=== PATIENT | female | born 2000 | race African-American/Black ===

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

== ENCOUNTER 2018-07-19 21:50 | Emergency (ER) | payer SELFPAY ==
[~2018-07-19] VITALS: Ht 162.6 cm; Wt 70.3 kg
[~2018-07-19 21:50] MED LIST: SULF1TAB35 PO
[2018-07-19] MEDS ORDERED: SERT25TA PO (22:00)
[2018-07-19] MEDS ORDERED: KETOROLAC 30 MG/ML VIAL IVP ONE (22:00)
[2018-07-19 22:09] LABS: BASOPHILS % (AUTO) 0 % (0-10); EOSINOPHILS # (AUTO) 0.1 10^3/uL (0.0-0.3); EOSINOPHILS % (AUTO) 1 % (0-10); HEMATOCRIT 40 % (35-52); HEMOGLOBIN 13.7 G/DL (11.5-16.0); LYMPHOCYTES # (AUTO) 4.3 X 10^3 (1.0-4.0); LYMPHOCYTES % (AUTO) 48 % (12-44); MEAN CORPUSCULAR HEMOGLOBIN 32 PG (25-34); MEAN CORPUSCULAR HGB CONC 34 G/DL (32-36); MEAN CORPUSCULAR VOLUME 92 FL (80-99); MEAN PLATELET VOLUME 9.4 FL (7.4-10.4); MONOCYTES % (AUTO) 12 % (0-12); NEUTROPHILS # (AUTO) 3.4 X 10^3 (1.8-7.8); NEUTROPHILS % (AUTO) 39 % (42-75); PLATELET COUNT 254 10^3/uL (130-400); RED CELL DISTRIBUTION WIDTH 12.5 % (10.0-14.5); WHITE BLOOD COUNT 8.9 10^3/uL (4.3-11.0)
[2018-07-19 22:30] LABS: ALANINE AMINOTRANSFERASE 17 U/L (0-55); ALBUMIN 4.8 GM/DL (3.2-4.5); ALKALINE PHOSPHATASE 71 U/L (40-136); BILIRUBIN,TOTAL 0.3 MG/DL (0.1-1.0); BUN/CREATININE RATIO 24; CALCIUM 9.6 MG/DL (8.5-10.1); CARBON DIOXIDE 20 MMOL/L (21-32); CHLORIDE 105 MMOL/L (98-107); CREATININE SERUM 0.85 MG/DL (0.60-1.30); GFR ESTIMATED > 60; GLUCOSE 83 MG/DL (70-105); SODIUM 138 MMOL/L (135-145); TOTAL PROTEIN 7.6 GM/DL (6.4-8.2)
--- NOTE | 2018-07-19 22:40 | ED Cardiac General ---
History of Present Illness General Chief Complaint: Chest Wall Stated Complaint: CHEST PAIN Nursing Triage Note: INTERMITTANT CHEST WALL PAIN X2 YRS Source: patient Exam Limitations: no limitations History of Present Illness Date Seen by Provider: Jul 19, 2018 Time Seen by Provider: 21:50 Initial Comments 17-year-old female who presents to the emergency room with complaints of intermittent chest wall pain for the past 2 years. She denies seeing her primary care provider for this issue. She felt that she to get this checked out before it got worse. Denies shortness of breath, lightheadedness, palpitations. Associated Systoms: Chest Pain Allergies and Home Medications Allergies Coded Allergies: No Known Drug Allergies (Unverified Allergy, Mild, 06/08/08) Patient Home Medication List Home Medication List Reviewed: Yes Review of Systems Review of Systems Constitutional: see HPI; No chills, No fever Cardiovascular: See HPI, Chest Pain All Other Systems Reviewed Negative Unless Noted: Yes Past Trvkrfc-Jlzgpz-Fdcalv Hx Past Med/Social Hx: Reviewed Nursing Past Med/Soc Hx Patient Social History Alcohol Use: Denies Use Recreational Drug Use: No Smoking Status: Current Everyday Smoker Type Used: Cigarettes 2nd Hand Smoke Exposure: Yes Recent Foreign Travel: No Contact w/Someone Who Travel: No Recent Infectious Disease Expo: No Recent Hopitalizations: No Immunizations Up To Date Tetanus Booster (TDap): Unknown Seasonal Allergies Seasonal Allergies: No Past Medical History Surgeries: No Respiratory: No Cardiac: No Neurological: No Genitourinary: No Gastrointestinal: No Musculoskeletal: No Endocrine: No HEENT: No Cancer: No Psychosocial: Yes Anxiety, Depression Integumentary: No Blood Disorders: No Family Medical History Reviewed Nursing Family Hx Physical Exam Vital Signs Vital Signs - First Documented 07/19/18 07/19/18 21:53 22:48 Temp 96.3 Pulse 64 Resp 18 B/P (MAP) 132/95 Pulse Ox 99 O2 Delivery Room Air Capillary Refill : Less Than 3 Seconds Height, Weight, BMI Height: 5'4.00" Weight: 155lbs. oz. 70.433083kf; 21.09 BMI Method:Stated General Appearance: No Apparent Distress, WD/WN Respiratory: Lungs Clear, Normal Breath Sounds, No Accessory Muscle Use, No Respiratory Distress, Other (chest pain is reproducible with palpation) Cardiovascular: Regular Rate, Rhythm, No Edema, No Gallop, No JVD, No Murmur, Normal Peripheral Pulses Extremity: Normal Capillary Refill Neurologic/Psychiatric: Alert, Oriented x3, Normal Mood/Affect Skin: Normal Color, Warm/Dry Progress/Results/Core Measures Results/Orders Lab Results Laboratory Tests Test 07/19/18 21:55 Range/Units White Blood Count 8.9 4.3-11.0 10^3/uL Red Blood Count 4.35 4.35-5.85 10^6/uL Hemoglobin 13.7 11.5-16.0 G/DL Hematocrit 40 35-52 % Mean Corpuscular Volume 92 80-99 FL Mean Corpuscular Hemoglobin 32 25-34 PG Mean Corpuscular Hemoglobin Concent 34 32-36 G/DL Red Cell Distribution Width 12.5 10.0-14.5 % Platelet Count 254 130-400 10^3/uL Mean Platelet Volume 9.4 7.4-10.4 FL Neutrophils (%) (Auto) 39 L 42-75 % Lymphocytes (%) (Auto) 48 H 12-44 % Monocytes (%) (Auto) 12 0-12 % Eosinophils (%) (Auto) 1 0-10 % Basophils (%) (Auto) 0 0-10 % Neutrophils # (Auto) 3.4 1.8-7.8 X 10^3 Lymphocytes # (Auto) 4.3 H 1.0-4.0 X 10^3 Monocytes # (Auto) 1.0 0.0-1.0 X 10^3 Eosinophils # (Auto) 0.1 0.0-0.3 10^3/uL Basophils # (Auto) 0.0 0.0-0.1 10^3/uL Sodium Level 138 135-145 MMOL/L Potassium Level 4.0 3.6-5.0 MMOL/L Chloride Level 105 98-107 MMOL/L Carbon Dioxide Level 20 L 21-32 MMOL/L Anion Gap 13 5-14 MMOL/L Blood Urea Nitrogen 20 H 7-18 MG/DL Creatinine 0.85 0.60-1.30 MG/DL Estimat Glomerular Filtration Rate > 60 BUN/Creatinine Ratio 24 Glucose Level 83 70-105 MG/DL Calcium Level 9.6 8.5-10.1 MG/DL Corrected Calcium 8.5-10.1 MG/DL Total Bilirubin 0.3 0.1-1.0 MG/DL Aspartate Amino Transf (AST/SGOT) 23 5-34 U/L Alanine Aminotransferase (ALT/SGPT) 17 0-55 U/L Alkaline Phosphatase 71 40-136 U/L Troponin I < 0.028 <0.028 NG/ML Total Protein 7.6 6.4-8.2 GM/DL Albumin 4.8 H 3.2-4.5 GM/DL My Orders Orders - CINDY VILLAR Troponin I (07/19/18 21:57) Chest 1 View, Ap/Pa Only (07/19/18 21:57) Ekg Tracing (07/19/18 21:57) Ed Iv/Invasive Line Start (07/19/18 21:57) Monitor-Rhythm Ecg Trace Only (07/19/18 21:57) Cbc With Automated Diff (07/19/18 21:57) Comprehensive Metabolic Panel (07/19/18 21:57) Ketorolac Injection (Toradol Injection) (07/19/18 22:00) Medications Given in ED Vital Signs/I&O 07/19/18 07/19/18 21:53 22:48 Temp 96.3 96.9 Pulse 64 84 Resp 18 18 B/P (MAP) 132/95 110/67 (81) Pulse Ox 99 O2 Delivery Room Air Room Air Departure Impression Primary Impression: Pleuritic chest pain Additional Impression: Chest wall pain Disposition: 01 HOME, SELF-CARE Condition: Stable/Unchanged Departure-Patient Inst. Decision time for Depature: 22:40 Referrals: NO,LOCAL PHYSICIAN (PCP/Family) Primary Care Physician Patient Instructions: Pleuritic Chest Pain (DC) Add. Discharge Instructions: You may use ibuprofen and Tylenol as directed by the bottle for pain relief. Follow-up with your primary care provider within 1 week for recheck. Return back to the emergency room for worsening symptoms or concerns as needed. All discharge instructions reviewed with patient and/or family. Voiced understanding. CINDY VILLAR Jul 19, 2018 22:40
[2018-07-19 22:48] VITALS: BP 110/67
--- NOTE | 2018-07-20 07:18 | Diagnostic Imaging Report ---
INDICATION: Chest pain. No prior examinations are available for comparison. FINDINGS: The heart size, mediastinal configuration, and pulmonary vascularity are within normal limits. There is no pleural effusion, pneumothorax, or pneumonia. The osseous structures are unremarkable. IMPRESSION: No acute cardiopulmonary abnormality. Dictated by: Dictated on workstation # [id number]
== END 2018-07-19 22:48 | disposition home or self-care (01) ==
LOC: EDUNIT# 21:50 → ER 21:51
DX: R07.81 Pleurodynia (principal); F41.9 Anxiety disorder, unspecified; F32.9 Major depressive disorder, single episode, unspecified; F17.210 Nicotine dependence, cigarettes, uncomplicated
CPT/HCPCS: 36415; 71045; 80053; 84484; 85025; 93005; 93041; 96374

== ENCOUNTER 2020-11-07 03:41 | Outpatient (CLI) | payer MEDICAID ==
[~2020-11-07] VITALS: Ht 160 cm; Wt 96.6 kg
[~2020-11-07 03:41] MED LIST changes: +SERT25TA PO; -SULF1TAB35 PO; +SULF1TAB38 PO
[2020-11-07 04:16] VITALS: BP 109/69
[2020-11-07 05:38] VITALS: BP 109/69
--- NOTE | 2020-11-08 08:28 | Physician Query-Final Dx ---
VINICIO CORREA 11/08/20 0828: Clinic Account Progress/Dx Physician Query: Please give diagnosis Please include # weeks gestation Date of Service Nov 07, 2020 at 03:41 DEVAN LLANOS MD 11/09/20 1355: Clinic Account Progress/Dx DIAGNOSIS: Diagnosis 35 weeks gestation with false labor VINICIO CORREA Nov 08, 2020 08:28 DEVAN LLANOS MD Nov 09, 2020 13:55
== END 2020-11-07 05:20 | disposition home or self-care (01) ==
LOC: WSo 03:41 → LDRP 03:43 → WSo 05:20
PROVIDERS: ATTEND Obstetrics & Gynecology
DX: O26.899 Other specified pregnancy related conditions, unspecified trimester (principal); R10.2 Pelvic and perineal pain; Z3A.00 Weeks of gestation of pregnancy not specified
CPT/HCPCS: 99213

== ENCOUNTER 2020-11-10 19:20 | Outpatient (CLI) | payer MEDICAID ==
[~2020-11-10] VITALS: Ht 160 cm; Wt 96.0 kg
[2020-11-10 19:45] VITALS: BP 112/66
[2020-11-10 20:10] LABS: BILIRUBIN,URINE NEGATIVE (NEGATIVE); CLARITY,URINE SL CLOUDY; COLOR,URINE YELLOW; GLUCOSE, URINE (UA) NEGATIVE (NEGATIVE); KETONES,URINE NEGATIVE (NEGATIVE); LEUKOCYTE ESTERASE ,URINE 3+ (NEGATIVE); NITRITE,URINE NEGATIVE (NEGATIVE); PROTEIN,URINE NEGATIVE (NEGATIVE)
[2020-11-10 20:25] LABS: BACTERIA,URINE FEW /HPF; WBC,URINE 25-50 /HPF
[2020-11-10 20:26] LABS: TRICHOMONAS,URINE MODERATE /HPF
[2020-11-10] MEDS ORDERED: metroNIDAZOLE 500 MG (FLAGYL) TAB ONE (20:44)
[2020-11-10] MEDS ORDERED: metroNIDAZOLE 500 MG (FLAGYL) TAB PO ONE (20:45)
[2020-11-10] MEDS ORDERED: D5 LR IV SOLUTION 1,000 ML IV ONE (21:27)
[2020-11-10] MEDS ORDERED: D5 LR IV SOLUTION 1,000 ML IV SCH (21:45)
[2020-11-10] MEDS ORDERED: OMEP20TA33 PO (23:16)
[2020-11-10] MEDS ORDERED: LORA10CA PO (23:16)
[2020-11-10] MEDS ORDERED: FLUO20CA42 PO (23:16)
--- NOTE | 2020-11-11 08:56 | Physician Query-Final Dx ---
VINICIO CORREA 11/11/20 0856: Clinic Account Progress/Dx Physician Query: Please give diagnosis Please include # weeks gestation Date of Service Nov 10, 2020 at 19:20 DEVAN LLANOS MD 11/11/20 1342: Clinic Account Progress/Dx DIAGNOSIS: Diagnosis 35 weeks gestation with Vaginal trichomoniasis VINICIO CORREA Nov 11, 2020 08:56 DEVAN LLANSO MD Nov 11, 2020 13:42
== END 2020-11-10 23:20 | disposition home or self-care (01) ==
LOC: WSo 19:20 → LDRP 19:21 → WSo 23:20
PROVIDERS: ATTEND Obstetrics & Gynecology
DX: O98.32 Other infections with a predominantly sexual mode of transmission complicating childbirth (principal); A59.01 Trichomonal vulvovaginitis; Z3A.35 35 weeks gestation of pregnancy
CPT/HCPCS: 81000; 96360; 99214

== ENCOUNTER 2020-11-20 12:24 | Outpatient (CLI) | payer MEDICAID ==
[~2020-11-20] VITALS: Ht 162.6 cm; Wt 96.2 kg
[~2020-11-20 12:24] MED LIST changes: +FLUO20CA42 PO; +LORA10CA PO; +OMEP20TA33 PO
[2020-11-20 12:48] VITALS: BP 115/65
[2020-11-20 12:51] VITALS: BP 115/65
[2020-11-20] MEDS ORDERED: PREN-37 PO (12:52)
[2020-11-20] MEDS ORDERED: D5 LR IV SOLUTION 1,000 ML IV ONE ×2 (13:19→13:30)
[2020-11-20 13:47] LABS: BASOPHILS % (AUTO) 0 % (0-10); EOSINOPHILS % (AUTO) 0 % (0-10); HEMATOCRIT 34 % (35-52); HEMOGLOBIN 12.1 g/dL (11.5-16.0); LYMPHOCYTES # (AUTO) 2.1 10^3/uL (1.0-4.0); LYMPHOCYTES % (AUTO) 22 % (12-44); MEAN CORPUSCULAR HEMOGLOBIN 32 pg (25-34); MEAN CORPUSCULAR HGB CONC 35 g/dL (32-36); MEAN CORPUSCULAR VOLUME 91 fL (80-99); MONOCYTES % (AUTO) 11 % (0-12); NEUTROPHILS # (AUTO) 6.2 10^3/uL (1.8-7.8); NEUTROPHILS % (AUTO) 66 % (42-75); PLATELET COUNT 223 10^3/uL (130-400); WHITE BLOOD COUNT 9.5 10^3/uL (4.3-11.0)
[2020-11-20] MEDS ORDERED: FLU QUADRIvalent (3YOA+) 60 mcg/0.5 ml 2021-22(AFLURIA) IM ONE (14:15)
[2020-11-20] MEDS: D5 LR IV SOLUTION 1,000 ML IV SCH ×2 (15:39→22:23)
[2020-11-20 18:20] VITALS: BP 114/72
[2020-11-20 20:08] VITALS: BP 118/72
[2020-11-21 03:22] VITALS: BP 117/73
[2020-11-21] MEDS: D5 LR IV SOLUTION 1,000 ML IV SCH (04:44)
--- NOTE | 2020-11-22 08:23 | Physician Query-Final Dx ---
VINICIO CORREA 11/22/20 0823: Clinic Account Progress/Dx Physician Query: Please give diagnosis Please include # weeks gestation Date of Service Nov 20, 2020 at 12:24 DEVAN LLANOS MD 11/22/20 1416: Clinic Account Progress/Dx DIAGNOSIS: Diagnosis 37 weeks gestation with false labor VINICIO CORREA Nov 22, 2020 08:23 DEVAN LLANOS MD Nov 22, 2020 14:16
== END 2020-11-21 07:35 | disposition home or self-care (01) ==
LOC: WSo 12:24 → LDRP 12:24 → WSo 11-21 07:35
PROVIDERS: ATTEND Obstetrics & Gynecology
DX: O47.1 False labor at or after 37 completed weeks of gestation (principal); Z3A.37 37 weeks gestation of pregnancy
CPT/HCPCS: 36415; 85025; 96360; 96361

== ENCOUNTER 2020-11-24 00:49 | Inpatient (IN) | payer MEDICAID ==
[~2020-11-24] VITALS: Ht 162.6 cm; Wt 97.4 kg
[2020-11-24] VITALS (52 sets, daily range): BP systolic 90–137; BP diastolic 45–93
[~2020-11-24 00:49] MED LIST changes: +PREN-37 PO
[2020-11-24] MEDS ORDERED: D5 LR IV SOLUTION 1,000 ML IV SCH ×3 (01:30→08:00)
[2020-11-24] MEDS ORDERED: CATHETER FLUSH 10 ML SYR IV SCH (06:00)
[2020-11-24 06:14] LABS: BASOPHILS % (AUTO) 0 % (0-10); EOSINOPHILS # (AUTO) 0.1 10^3/uL (0.0-0.3); EOSINOPHILS % (AUTO) 1 % (0-10); HEMATOCRIT 33 % (35-52); HEMOGLOBIN 11.7 g/dL (11.5-16.0); LYMPHOCYTES # (AUTO) 2.5 10^3/uL (1.0-4.0); LYMPHOCYTES % (AUTO) 22 % (12-44); MEAN CORPUSCULAR HEMOGLOBIN 32 pg (25-34); MEAN CORPUSCULAR HGB CONC 36 g/dL (32-36); MEAN CORPUSCULAR VOLUME 91 fL (80-99); MEAN PLATELET VOLUME 10.1 fL (9.0-12.2); MONOCYTES # (AUTO) 1.3 10^3/uL (0.0-1.0); MONOCYTES % (AUTO) 11 % (0-12); NEUTROPHILS # (AUTO) 7.8 10^3/uL (1.8-7.8); NEUTROPHILS % (AUTO) 66 % (42-75); PLATELET COUNT 234 10^3/uL (130-400); WHITE BLOOD COUNT 11.8 10^3/uL (4.3-11.0)
[2020-11-24] MEDS ORDERED: FLU QUADRIvalent (3YOA+) 60 mcg/0.5 ml 2021-22(AFLURIA) IM ONE (06:45)
--- NOTE | 2020-11-24 07:50 | History & Physical ---
History and Physical Date Seen by Provider: Nov 24, 2020 Time Seen by Provider: 07:49 This patient is a 20-year-old female currently at 37+ weeks gestation admitted in labor. Her has been uncomplicated. Her GBS culture was negative. She denies rupture membranes or bleeding. Allergies are none Medications are vitamins Medical social and surgical history is all per the antepartum record HEENT exam is normal Neck is supple no lymphadenopathy no thyromegaly Abdomen is gravid soft nontender nondistended Extremities show no clubbing cyanosis. There is no Homans' sign. Pelvic exam shows a cervix 3 cm dilated 90% effaced, 0 station soft and anterior Assessment and plan Term at 37+ weeks gestation admitted in labor. We anticipate a vaginal delivery 37-week in labor Allergies and Home Medications Allergies Coded Allergies: No Known Drug Allergies (Unverified , 06/08/08) Patient Home Medication List Home Medication List Reviewed: Yes Fluoxetine HCl (Prozac) 20 Mg Capsule, 20 MG PO, (Reported) Entered as Reported by: DIAZ GRANT on 11/10/202315 Last Action: Reviewed Loratadine (Claritin) 10 Mg Capsule, 10 MG PO, (Reported) Entered as Reported by: DIAZ GRANT on 11/10/202315 Last Action: Reviewed Omeprazole Magnesium (Prilosec Otc) 20 Mg Tablet.dr, 20 MG PO, (Reported) Entered as Reported by: DIAZ GRANT on 11/10/202315 Last Action: Reviewed Vit/Iron Fumarate/FA ( Tablet) 1 Each Tablet, 1 EACH PO DAILY, (Reported) Entered as Reported by: MIRYAM HERBERT on 11/20/20 1252 Last Action: Reviewed DEVAN LLANOS MD Nov 24, 2020 07:50
[2020-11-24] MEDS ORDERED: OXYTOCIN PRE-MIX DRIP 500 ML IV ONE (07:52)
[2020-11-24] MEDS ORDERED: OXYTOCIN PRE-MIX DRIP 500 ML IV SCH ×2 (08:00→17:15)
[2020-11-24] MEDS ORDERED: fentaNYL 2 mcg/ml BUPIVA 0.125 100 ML ONE (08:18)
[2020-11-24] MEDS ORDERED: fentaNYL INJ 100 MCG/2 ML AMP ONE (09:39)
[2020-11-24] MEDS ORDERED: LACTATED RINGERS 1,000 ML IV ONE (13:00)
[2020-11-24] MEDS ORDERED: diphenhydrAMINE 50 MG/ML INJ (BENADRYL) IV PRN (13:00)
[2020-11-24] MEDS ORDERED: METOCLOPRAMIDE INJ 10 MG/2 ML (REGLAN) IV PRN (13:00)
[2020-11-24] MEDS ORDERED: ONDANSETRON 4 MG/2 ML (SDV) Z0FRAN IV PRN (13:00)
[2020-11-24] MEDS ORDERED: NALOXONE 0.4 MG/ML 1 ML (NARCAN) VIAL IV PRN ×2 (13:00)
[2020-11-24] MEDS ORDERED: EPIDURAL (fentaNYL 2 MCG/ML BUPIVA 0.125%)100 ML BAG EPI PRN (13:00)
[2020-11-24] MEDS ORDERED: LIDOCAINE/EPI 2% 1:200,00 (XYLOCAINE) 20 ML VIAL ONE (14:58)
[2020-11-24] MEDS ORDERED: BENZOCAINE/MENTHOL (DERMOPLAST) 56 ML CAN TP PRN (17:15)
[2020-11-24] MEDS ORDERED: ONDANSETRON 4 MG/2 ML (SDV) Z0FRAN IVP PRN (17:15)
[2020-11-24] MEDS ORDERED: MEASLES,MUMPS,RUBELLA 1 EA INJ SC ONE (17:15)
[2020-11-24] MEDS ORDERED: TETANUS,DIPTH,PERTUSS P/F (BOOSTRIX) 0.5 ML VIAL IM ONE (17:15)
[2020-11-24] MEDS ORDERED: oxyCODONE/APAP 5/325MG (PERCOCET 5) TABLET PO PRN (17:15)
[2020-11-24] MEDS ORDERED: WITCH HAZEL(TUCKS) 40 EA JAR TOP PRN (20:00)
[2020-11-24] MEDS: DOCUSATE SODIUM 100 MG (COLACE) CAP PO SCH (20:23)
[2020-11-24] MEDS: KETOROLAC 30 MG/ML VIAL IVP SCH (20:24)
[2020-11-25] VITALS: BP 108/62
[2020-11-25] MEDS: KETOROLAC 30 MG/ML VIAL IVP SCH ×3 (00:09→11:39)
--- NOTE | 2020-11-25 01:34 | OPERATIVE REPORT ---
DATE OF SERVICE: 11/24/2020 DELIVERY NOTE The patient delivered by term operative vaginal delivery, a viable male with Apgars of 8 and 8 at 1 and 5 minutes respectively, weight of 5 pounds and 10 ounces. time of 15:20 and a cord blood pH that is pending. The patient delivered under epidural analgesia, augmented with local analgesia in the perineum. Wolfe forceps were applied at the +4 station secondary to ineffective expulsive effort by the mom with the heart rate persistently in the 70s. Gentle traction with the next contraction effected delivery of the head over the perineum with maternal expulsive effort. The infant was bulb suctioned on delivery of the head and again on completion of delivery. The umbilical cord was doubly clamped. The patient's mother cut the cord and the baby was passed to mom's abdomen. Cord bloods were obtained. The placenta delivered spontaneously Colón. It was normal with a 3-vessel cord. The cervix, vagina, rectum, and perineum were examined and found intact, except for a 3 cm left periurethral laceration and a 5 cm posterior fourchette, posterior vaginal wall, first-degree laceration as well. Both of these lacerations were repaired with a single suture of 3-0 Vicryl Rapide in the usual manner without difficulty to good reapproximation and good hemostasis. There was a right periurethral abrasion that was hemostatic and did not require repair. Sponge and needle counts were correct on completion of the delivery and repair. Blood loss was around 400 mL. The patient tolerated the delivery and the repair well and recovered in the LDR. The baby remained with the mom. Job ID: [id number] DocumentID: [id number] Dictated Date: 11/24/2020 16:15:57 [employer] Date: 11/25/2020 01:33:42 Dictated By: DEVAN LLANOS MD
[2020-11-25 04:00] VITALS: BP 126/68
[2020-11-25 08:09] VITALS: BP 113/78
[2020-11-25] MEDS: DOCUSATE SODIUM 100 MG (COLACE) CAP PO SCH ×2 (08:10→20:26)
--- NOTE | 2020-11-25 09:16 | Anesthesia-Regional Post-Op ---
Regional Patient Condition Mental Status: Alert, Oriented x3 Circulation: Same as Pre-Op Headache: Absent Sensation: Full Recovery Motor Block: Absent Post Op Complications Complications None Follow Up Care/Instructions Patient Instructions None needed. Anesthesia/Patient Condition Patient is doing well, no complaints, stable vital signs, no apparent adverse anesthesia problems. No complications reported per nursing. JESSICA CHAWLA CRNA Nov 25, 2020 09:16
[2020-11-25] MEDS ORDERED: IBUPROFEN 600 MG (MOTRIN) TAB PO ONE (11:48)
[2020-11-25] MEDS ORDERED: IBUPROFEN 800 MG (MOTRIN) TAB PO ONE (11:50)
[2020-11-25 11:54] VITALS: BP 115/70
[2020-11-25] MEDS: IBUPROFEN 800 MG (MOTRIN) TAB PO SCH ×2 (11:54→17:55)
--- NOTE | 2020-11-25 12:49 | Progress Note ---
Standard Progress Note Progress Notes/Assess & Plan Date Seen by a Provider: Nov 25, 2020 Time Seen by a Provider: 07:45 Progress/Assessment & Plan This patient is without complaint. She is ambulating, voiding, tolerating Oral intake well and has good pain control. Vital Signs 11/25/20 11:54 Temp 36.4 Pulse 85 Resp 20 B/P (MAP) 115/70 (85) Pulse Ox 95 O2 Delivery Room Air Vital signs are stable. Patient is afebrile. Fundus is firm below the umbilicus and the tender. Extremities show no clubbing cyanosis there is no Homans' sign. Assessment and plan day 1 status post term vaginal delivery doing well plan for routine c onvalescent care DEVAN LLANOS MD Nov 25, 2020 12:49
[2020-11-25 16:22] VITALS: BP 114/77
[2020-11-25 20:25] VITALS: BP 117/60
[2020-11-26 01:25] VITALS: BP 114/64
[2020-11-26] MEDS: IBUPROFEN 800 MG (MOTRIN) TAB PO SCH ×2 (01:25→09:48)
[2020-11-26 09:47] VITALS: BP 97/60
[2020-11-26] MEDS: DOCUSATE SODIUM 100 MG (COLACE) CAP PO SCH (09:48)
[2020-11-26] MEDS ORDERED: ACET-2267 PO (10:32)
[2020-11-26] MEDS ORDERED: IBUP-1780 PO (10:32)
== END 2020-11-26 13:15 | disposition home or self-care (01) | DRG 807 ==
LOC: WSo 00:49 → LDRP 00:52 → WSo 05:46 → LDRP 05:47
PROVIDERS: ADMIT Obstetrics & Gynecology; ATTEND Obstetrics & Gynecology
PROC: 10E0XZZ Delivery of Products of Conception, External Approach (ICD-10-PCS; principal; 2020-11-24)
PROC: 0UQMXZZ Repair Vulva, External Approach (ICD-10-PCS; 2020-11-24)
PROC: 0UQGXZZ Repair Vagina, External Approach (ICD-10-PCS; 2020-11-24)
PROC: 0HQ9XZZ Repair Perineum Skin, External Approach (ICD-10-PCS; 2020-11-24)
DX: O80 Encounter for full-term uncomplicated delivery (principal); Z37.0 Single live birth; Z3A.37 37 weeks gestation of pregnancy; O71.82 Other specified trauma to perineum and vulva; O70.0 First degree perineal laceration during delivery; O71.89 Other specified obstetric trauma
CPT/HCPCS: 36415; 85025; 86780; 86850; 86900; 86901; 99212